=== PATIENT | male | born 1990 | race Hispanic/Latino ===

== ENCOUNTER 2021-10-25 06:13 | Emergency (ER) | payer SELFPAY ==
[2021-10-25 07:43] VITALS: BP 101/73
[2021-10-25] MEDS ORDERED: ONDANSETRON 4 MG ODT TAB PO ONE (11:16)
--- NOTE | 2021-10-25 11:17 | Emergency Department Report ---
ED N/V/D HPI - General Chief complaint: Nausea/Vomiting/Diarrhea Stated complaint: VOMITING Time Seen by Provider: 10/25/21 11:01 Source: patient Mode of arrival: Ambulatory Limitations: No Limitations - History of Present Illness Initial comments: 29-year-old male with a past medical history of hypertension presents to the ER today with complaints of nausea and vomiting. Patient states that has been vomiting intermittently for 1.5 weeks. Patient states that he has a history of similar. He has been vomiting off and on in the past with past 2 years basis in the past 2 months since he changed his diet he was doing fine up until 1.5 weeks ago. He reports associated "sniffles", sneezing and cough and. He denies any diarrhea, constipation, abdominal pain, fever or chills. Patient states he has a few roommates who are sick with somewhat similar symptoms and so came to the ER to get checked out. He did take a COVID-19 test and it was negative. He denies any illicit drug use, alcohol abuse or tobacco use. MD complaint: nausea, vomiting -: week(s) (1.5) - Related Data Previous Rx's Medication Instructions Recorded Last Taken Type Ondansetron [Zofran Odt] 4 mg PO Q8HR PRN #15 tab.rapdis 10/25/21 Unknown Rx Allergies Allergy/AdvReac Type Severity Reaction Status Date / Time No Known Allergies Allergy Unverified 10/25/21 07:40 ED Review of Systems ROS: Stated complaint: VOMITING Other details as noted in HPI Comment: All other systems reviewed and negative Constitutional: denies: chills, fever Eyes: denies: eye pain, eye discharge, vision change ENT: other (sneezing ). denies: ear pain, throat pain, dental pain, hearing loss, epistaxis, congestion Respiratory: cough. denies: shortness of breath, SOB with exertion, SOB at rest, wheezing Cardiovascular: denies: chest pain, palpitations, dyspnea on exertion, edema, syncope, paroxysmal nocturnal dyspnea Gastrointestinal: nausea, vomiting. denies: abdominal pain, diarrhea, constipation, hematemesis, hematochezia Genitourinary: denies: urgency, dysuria, frequency, hematuria, discharge, testicular pain, testicular mass Musculoskeletal: denies: back pain, joint swelling, arthralgia Skin: denies: rash, lesions, change in color, change in hair/nails, pruritus Neurological: denies: headache, weakness, numbness, paresthesias, confusion, abnormal gait, vertigo Psychiatric: denies: anxiety, depression, auditory hallucinations, visual hallucinations, homicidal thoughts, suicidal thoughts Hematological/Lymphatic: denies: easy bleeding, easy bruising, swollen glands ED Past Medical Hx - Medications Home Medications: Home Medications Medication Instructions Recorded Confirmed Last Taken Type Ondansetron [Zofran Odt] 4 mg PO Q8HR PRN #15 tab.rapdis 10/25/21 Unknown Rx ED Physical Exam - General Limitations: No Limitations General appearance: alert, in no apparent distress - Head Head exam: Present: atraumatic, normocephalic, normal inspection - Eye Eye exam: Present: normal appearance, PERRL, EOMI Pupils: Present: normal accommodation - ENT ENT exam: Present: normal exam, mucous membranes moist - Neck Neck exam: Present: normal inspection, full ROM. Absent: meningismus - Respiratory Respiratory exam: Present: normal lung sounds bilaterally. Absent: respiratory distress, wheezes, rales, rhonchi - Cardiovascular Cardiovascular Exam: Present: regular rate, normal rhythm, normal heart sounds - GI/Abdominal GI/Abdominal exam: Present: soft. Absent: distended, tenderness, guarding, rebound - Neurological Exam Neurological exam: Present: alert, oriented X3, CN II-XII intact, normal gait - Psychiatric Psychiatric exam: Present: normal affect, normal mood - Skin Skin exam: Present: intact ED Course Vital Signs 10/25/21 07:42 Temperature 98.4 F Pulse Rate 82 Respiratory 15 Rate Blood Pressure 101/73 [Right] O2 Sat by Pulse 97 Oximetry ED Medical Decision Making - Medical Decision Making Patient currently resting comfortably in recliner. He has not had any vomiting during stay. He was able to tolerate p.o. water. His abdomen is soft and nontender. He is not ill-appearing, is not toxic, is not a significant distress and he appears hydrated. His chest is clear to auscultation. He is not in any pain or respiratory distress. His vital signs are stable. Discussed with patient his symptoms could be related to nonspecific viral illness. At this time there is no indication for emergent testing. He will be discharged home with a prescription for Zofran, encourage lots of fluids and doing a bland diet. Patient expressed understanding for instructions and agree with plan. Patient stable at time of discharge. Critical care attestation.: If time is entered above; I have spent that time in minutes in the direct care of this critically ill patient, excluding procedure time. ED Disposition Clinical Impression: Vomiting, Viral illness Disposition: HOME / SELF CARE / HOMELESS Is pt being admited?: No Does the pt Need Aspirin: No Condition: Stable Instructions: Vomiting, Adult, Viral Illness, Adult Additional Instructions: Take the Zofran as prescribed as needed for nausea or vomiting. Continue to drink lots of fluids. You can follow the bland diet listed on your discharge instructions. Follow-up closely with your PCP. Return to the ER if your symptoms worsens or changes in any way. Prescriptions: Ondansetron [Zofran Odt] 4 mg PO Q8HR PRN #15 tab.rapdis PRN Reason: nausea/vomiting Referrals: PRIMARY CARE, [Primary Care Provider] - 3-5 Days Forms: Work/School Release Form(ED) Time of Disposition: 12:27
== END 2021-10-25 12:34 | disposition home or self-care (01) ==
LOC: ED 06:13
DX: B34.9 Viral infection, unspecified (principal); R11.10 Vomiting, unspecified
CPT/HCPCS: 99282; J3490; Q0162